=== PATIENT | female | born 1980 | race African-American/Black ===

== ENCOUNTER 2018-09-24 13:17 | Emergency (ER) | payer OTHER ==
[~2018-09-24] VITALS: Ht 160 cm; Wt 83.9 kg
[~2018-09-24 13:17] MED LIST: LEXAPRO; NOHOMEMEDICATIONS; PREVACID 30MG C30 M1 PO; SKELAXIN; ZPAK PO
[2018-09-24] MEDS ORDERED: ADDERALL 20 MG20 M1 PO (13:27)
[2018-09-24] MEDS ORDERED: IBUPROFEN 600600 M1 PO (13:43)
[2018-09-24] MEDS ORDERED: NORCO 5-325 TA1 EAC1 PO (13:43)
[2018-09-24] MEDS ORDERED: CLEOCIN HCL300 MG PO (13:44)
[2018-09-24 14:13] VITALS: BP 122/81
== END 2018-09-24 13:47 | disposition home or self-care (01) ==
LOC: ER 13:17
DX: K08.89 Other specified disorders of teeth and supporting structures (principal); Z88.0 Allergy status to penicillin

== ENCOUNTER 2019-03-21 17:41 | Emergency (ER) | payer OTHER ==
[~2019-03-21] VITALS: Ht 160 cm; Wt 81.7 kg
[~2019-03-21 17:41] MED LIST changes: +ADDERALL 20 MG20 M1 PO; +CLEOCIN HCL300 MG PO; +IBUPROFEN 600600 M1 PO; +NORCO 5-325 TA1 EAC1 PO
[2019-03-21] MEDS ORDERED: [UNRECOGNIZED DRUG - OTHER] (17:48)
[2019-03-21] MEDS ORDERED: NAPROSYN500 MG PO (19:16)
[2019-03-21] MEDS ORDERED: NORFLEX100 MG PO (19:16)
[2019-03-21 19:27] VITALS: BP 115/71
== END 2019-03-21 19:27 | disposition home or self-care (01) ==
LOC: ER 17:41
DX: S29.012A Strain of muscle and tendon of back wall of thorax, initial encounter (principal); Z88.0 Allergy status to penicillin; V89.2XXA Person injured in unspecified motor-vehicle accident, traffic, initial encounter; Y92.89 Other specified places as the place of occurrence of the external cause; Y93.89 Activity, other specified; Y99.8 Other external cause status

== ENCOUNTER 2019-05-24 09:56 | Emergency (ER) | payer OTHER ==
[~2019-05-24] VITALS: Ht 160 cm; Wt 83.9 kg
[~2019-05-24 09:56] MED LIST changes: +NAPROSYN500 MG PO; +NORFLEX100 MG PO; +[UNRECOGNIZED DRUG - OTHER]
[2019-05-24] MEDS ORDERED: DESYREL150 MG PO (10:16)
[2019-05-24 10:33] LABS: ABSOLUTE NEUTROPHILS 5.1 thou/uL (1.4-8.2); EOSINOPHILS 1.8 % (0.0-3.0); HEMATOCRIT 40.3 % (37.0-47.0); HEMOGLOBIN 12.9 gm/dL (12.0-15.0); LYMPHOCYTES 26.9 % (24.0-44.0); MCH 28.1 pg (26.0-34.0); MCHC 31.9 g/dL (28.0-37.0); MCV 88.1 fL (80.0-100.0); MONOCYTES 4.5 % (1.0-8.0); PLATELET COUNT 386 thou/uL (150-400); POLYS 65.8 % (36.0-66.0); RBC 4.57 mil/uL (4.20-5.00); RDW 14.8 % (10.5-14.5); WBC 7.8 thou/uL (4.0-11.0)
[2019-05-24 10:40] LABS: ANION GAP 8 mmol/L (7-16); BUN 9 mg/dL (7-18); CALCIUM 9.2 mg/dL (8.5-10.1); CHLORIDE 104 mmol/L (98-107); CO2 27 mmol/L (21-32); CREATININE 1.1 mg/dL (0.6-1.0); GLUCOSE 72 mg/dL (74-106); SODIUM 139 mmol/L (136-145)
[2019-05-24 10:45] LABS: APTT 27.5 Seconds (24.5-32.8); POTASSIUM 3.6 mmol/L (3.5-5.1); PROTIME 10.3 Seconds (9.3-11.4)
[2019-05-24 10:56] LABS: MAGNESIUM 2.1 mg/dL (1.8-2.4); SGOT 14 U/L (15-37); SGPT 18 U/L (30-65); TOTAL BILIRUBIN 0.5 mg/dL (<0.1-1.0)
[2019-05-24 10:57] LABS: ALBUMIN 3.6 g/dL (3.4-5.0); TOTAL PROTEIN 7.7 g/dL (6.4-8.2); TROPONIN-I <0.06 ng/mL (<0.06)
[2019-05-24] MEDS ORDERED: NAPROSYN500 MG PO (11:00)
[2019-05-24 11:07] VITALS: BP 134/80
--- NOTE | 2019-05-24 16:28 | EKG ---
[facility] [place] [address] ELECTROCARDIOGRAM REPORT Name: JACK MORILLO [facility] [id number] Admission: 05/24/19 Attend Phys: Discharge: 05/24/19 Date of : 80 Report #: [id number] THIS REPORT FOR: cc: Maricel Burt Beth RNP Couchonnal, Luis F. MD ~ THIS REPORT FOR: //name// [facility] ED Test Date: 2019-05-24 Test Time: 09:56:13 Pat Name: JACK MORILLO Department: Room: Gender: F [employer]: [place] : 1980 Requested By: Estrada Vasquez Order Number: [id number] : Sascha Kilpatrick Measurements Intervals [place] Rate: 78 P: 40 CT: 145 QRS: 37 QRSD: 87 T: 18 QT: 396 QTc: 452 Interpretive Statements Sinus rhythm Baseline wander in lead(s) II,III,aVF Compared to ECG 04/10/2011 02:40:09 Myocardial infarct finding no longer present T-wave abnormality no longer present Electronically Signed On 05-24-2019 16:27:03 CDT by Sascha Kilpatrick [email or web address] <ELECTRONICALLY SIGNED> By: Sascha Kilpatrick MD 05/24/19 1627 [id number] Sascha Kilpatrick MD /EPI
== END 2019-05-24 11:07 ==
LOC: ER 09:56
PROVIDERS: Emergency Medicine
DX: R07.89 Other chest pain (principal)